=== PATIENT | male | born 1950 | race Hispanic/Latino ===

== ENCOUNTER → 2020-04-08 | Outpatient (CLI) | payer OTHER ==
[~2020-04-08] MED LIST: GADODIAMIDE 10 MMOL/20 ML VIAL IV ONE
== END | disposition home or self-care (01) ==
LOC: RAH 12:43
PROVIDERS: ATTEND Family Medicine
DX: M25.462 Effusion, left knee (principal)
CPT/HCPCS: 73723; A9579

== ENCOUNTER 2020-10-28 07:35 | Observation (INO) | payer OTHER ==
[2020-10-22 12:51] LABS: BASOPHILS % (AUTO) 0.4 % (0.0-5.0); EOSINOPHILS % (AUTO) 2.6 % (0.0-8.0); LYMPHOCYTES % (AUTO) 32.4 % (21.0-51.0); MEAN CORPUSCULAR HEMOGLOBIN 31.6 pg (27.0-33.0); MEAN CORPUSCULAR HGB CONC 33.3 g/dL (32.0-36.0); MEAN CORPUSCULAR VOLUME 94.7 fL (79-99); NEUTROPHILS % (AUTO) 54.3 % (40.0-77.0); PLATELET COUNT (AUTO) 165 K/uL (130-400); RED CELL DISTRIBUTION WIDTH 12.4 % (11.0-15.5); WHITE BLOOD COUNT (AUTO) 6.9 K/uL (4.8-10.8)
[2020-10-22 12:57] LABS: CREATININE 0.9 mg/dL (0.5-1.5); POTASSIUM 4.2 mmol/L (3.5-5.1)
[2020-10-22 13:08] LABS: PARTIAL THROMBOPLASTIN TIME 27.5 SEC (26.3-35.5)
[2020-10-22 13:31] LABS: PROTHROMBIN TIME 10.9 SEC (9.6-11.6)
[2020-10-27 10:25] VITALS: BP 124/85
[~2020-10-28] VITALS: Ht 180.3 cm; Wt 114.8 kg
[2020-10-28] VITALS (21 sets, daily range): BP systolic 105–138; BP diastolic 53–65
[2020-10-28] MEDS: CEFAZOLIN SODIUM 1 GM VIAL IVP SCH ×3 (06:00→20:12)
[~2020-10-28 07:35] MED LIST changes: +GABA300C PO; -GADODIAMIDE 10 MMOL/20 ML VIAL IV ONE; +IBUP-2070 PO
[2020-10-28] MEDS: LACTATED RINGERS 1000ML 1,000 ML IV SCH ×6 (08:53→15:27)
[2020-10-28] MEDS ORDERED: PROPOFOL 10 MG/ML 20ML VIAL IV ONE (11:08)
[2020-10-28] MEDS ORDERED: DEXAMETHASONE SOD PHOSPHATE 10MG/ML 1ML VIAL ONE (11:08)
[2020-10-28] MEDS ORDERED: LIDOCAINE PF 100MG/5ML (2%) SYRINGE 5ML ONE (11:08)
[2020-10-28] MEDS ORDERED: FENTANYL CITRATE PF 50 MCG/1 ML 2ML VIAL ONE (11:08)
[2020-10-28] MEDS ORDERED: SUCCINYLCHOLINE CHLORIDE 20 MG/ML 10 ML VIAL ONE (11:08)
[2020-10-28] MEDS ORDERED: ONDANSETRON HCL 4 MG/2 ML VIAL ONE (11:08)
[2020-10-28] MEDS ORDERED: GLYCOPYRROLATE 1 MG/5 ML SYRINGE ONE (11:08)
[2020-10-28] MEDS ORDERED: NEOSTIGMINE 5MG/5ML SYR IV ONE (11:08)
[2020-10-28] MEDS ORDERED: ROCURONIUM 10MG/1ML SYR 10 MG/ML ML ONE (11:09)
[2020-10-28] MEDS ORDERED: ATROPINE SULFATE 0.1 MG/ML 10 ML SYG IVP ONE (11:19)
[2020-10-28] MEDS: TRANEXAMIC ACID 1000MG/10ML ONE ×2 (11:30→12:30)
[2020-10-28] MEDS: TRAMADOL HCL 50 MG TABLET PO SCH ×3 (11:30→23:30)
[2020-10-28] MEDS ORDERED: IBUPROFEN 600 MG TABLET PO PRN (11:30)
[2020-10-28] MEDS: ACETAMINOPHEN 500 MG TABLET PO SCH ×2 (11:30→20:13)
[2020-10-28] MEDS ORDERED: MORPHINE 4 MG SYG (4MG/1ML) IVP PRN (11:30)
[2020-10-28] MEDS ORDERED: ONDANSETRON HCL 4 MG/2 ML VIAL IVP PRN (11:30)
[2020-10-28] MEDS ORDERED: KETOROLAC 15MG/ML VIAL (15MG/ML) IV PRN (11:30)
[2020-10-28] MEDS ORDERED: [UNRECOGNIZED DRUG - OTHER] TP SCH ×5 (11:45)
[2020-10-28] MEDS ORDERED: ROPIVACAINE TP SCH ×5 (11:45)
[2020-10-28] MEDS ORDERED: KETOROLAC TROMETHAMINE TP SCH ×5 (11:45)
[2020-10-28] MEDS ORDERED: MEPERIDINE-PF 25 MG/ML SYG ONE ×2 (13:53→14:14)
[2020-10-28] MEDS: SODIUM CHLORIDE 0.9% 1000ML 1,000 ML IV SCH ×2 (14:53→21:30)
[2020-10-28] MEDS ORDERED: CEFAZOLIN SODIUM 1 GM VIAL IVP SCH (16:30)
[2020-10-28] MEDS: FAMOTIDINE 20MG TAB 20 MG TAB PO SCH (20:13)
[2020-10-28] MEDS: GABAPENTIN 300 MG CAPSULE PO SCH (20:13)
[2020-10-28] MEDS: ASPIRIN 81 MG EC TAB PO SCH (20:13)
[2020-10-28] MEDS: OXYCODONE HCL 5 MG TAB PO PRN (22:44)
[2020-10-29] MEDS: CEFAZOLIN SODIUM 1 GM VIAL IVP SCH (03:23)
[2020-10-29] MEDS: ACETAMINOPHEN 500 MG TABLET PO SCH ×3 (03:24→18:33)
[2020-10-29 03:52] VITALS: BP 117/57
[2020-10-29 04:25] LABS: HEMATOCRIT 33.8 % (42-54); MEAN CORPUSCULAR HEMOGLOBIN 31.1 pg (27.0-33.0); MEAN CORPUSCULAR HGB CONC 32.5 g/dL (32.0-36.0); MEAN CORPUSCULAR VOLUME 95.5 fL (79-99); RED BLOOD CELL COUNT(AUTO) 3.54 MIL/uL (4.50-6.20); RED CELL DISTRIBUTION WIDTH 12.3 % (11.0-15.5)
[2020-10-29 04:38] LABS: POTASSIUM 4.1 mmol/L (3.5-5.1)
[2020-10-29] MEDS: TRAMADOL HCL 50 MG TABLET PO SCH ×4 (05:38→23:44)
[2020-10-29] MEDS: SODIUM CHLORIDE 0.9% 1000ML 1,000 ML IV SCH (07:30)
[2020-10-29] MEDS: POLYETHYLENE GLYCOL 3350 17 GM POWD.PACK PO SCH (07:39)
[2020-10-29] MEDS: ASPIRIN 81 MG EC TAB PO SCH ×2 (07:39→19:29)
[2020-10-29] MEDS: FAMOTIDINE 20MG TAB 20 MG TAB PO SCH ×2 (07:39→19:29)
[2020-10-29] MEDS: OXYCODONE HCL 5 MG TAB PO PRN (07:44)
[2020-10-29 08:07] VITALS: BP 119/54
[2020-10-29 11:57] VITALS: BP 111/64
[2020-10-29 16:00] VITALS: BP 121/62
[2020-10-29] MEDS: GABAPENTIN 300 MG CAPSULE PO SCH (19:29)
[2020-10-29 20:00] VITALS: BP 122/68
[2020-10-30] VITALS: BP 134/64
[2020-10-30] MEDS: ACETAMINOPHEN 500 MG TABLET PO SCH ×2 (02:34→12:05)
[2020-10-30] MEDS: TRAMADOL HCL 50 MG TABLET PO SCH ×2 (04:55→12:04)
[2020-10-30 08:00] VITALS: BP 120/65
[2020-10-30] MEDS: POLYETHYLENE GLYCOL 3350 17 GM POWD.PACK PO SCH (08:13)
[2020-10-30] MEDS: ASPIRIN 81 MG EC TAB PO SCH (08:13)
[2020-10-30] MEDS: FAMOTIDINE 20MG TAB 20 MG TAB PO SCH (08:13)
[2020-10-30] MEDS: OXYCODONE HCL 5 MG TAB PO PRN (08:16)
[2020-10-30 12:00] VITALS: BP 127/58
[2020-10-31] MEDS ORDERED: BISACODYL 10 MG SUPP.RECT RC PRN (11:30)
== END 2020-10-30 13:55 | disposition home health service (06) ==
LOC: DAH 07:35 → DAHIP 07:36 → DAH 07:36 → 4AH 14:51
PROVIDERS: ADMIT Orthopaedic Surgery; ATTEND Orthopaedic Surgery
DX: M17.12 Unilateral primary osteoarthritis, left knee (principal); Z20.822 Contact with and (suspected) exposure to COVID-19; E66.9 Obesity, unspecified; Z68.35 Body mass index [BMI] 35.0-35.9, adult
CPT/HCPCS: 27447; 36415 ×2; 73562; 80048 ×2; 85025; 85027; 85610; 85730; 87635; 87641; 93005; 96361 ×2; 96374; 96375; 96376; 97039 ×4; 97116 ×4; 97161; 97530 ×4; A4649 ×5; A4930 ×2; A9272; C1776; C9803; G0378 ×48; G8978; G8979; G8980; G8982; G8983; J0171; J0330; J0461; J0690 ×3; J0735; J1100; J1885 ×2; J2001; J2175 ×2; J2405; J2704; J2710; J2795; J3010; J3490 ×2; J7030; J7120

== ENCOUNTER 2021-01-06 06:28 | Day surgery (SDC) | payer OTHER ==
[2020-12-31 13:23] LABS: BASOPHILS % (AUTO) 0.4 % (0.0-5.0); EOSINOPHILS % (AUTO) 2.1 % (0.0-8.0); LYMPHOCYTES % (AUTO) 41.3 % (21.0-51.0); MEAN CORPUSCULAR HEMOGLOBIN 28.4 pg (27.0-33.0); MEAN CORPUSCULAR HGB CONC 31.5 g/dL (32.0-36.0); MEAN CORPUSCULAR VOLUME 90.1 fL (79-99); NEUTROPHILS % (AUTO) 46.9 % (40.0-77.0); PLATELET COUNT (AUTO) 173 K/uL (130-400); RED BLOOD CELL COUNT(AUTO) 4.33 MIL/uL (4.50-6.20); RED CELL DISTRIBUTION WIDTH 13.9 % (11.0-15.5); WHITE BLOOD COUNT (AUTO) 7.2 K/uL (4.8-10.8)
[2020-12-31 13:36] LABS: POTASSIUM 4.4 mmol/L (3.5-5.1)
[2021-01-05 11:48] VITALS: BP 146/76
[2021-01-06] VITALS (15 sets, daily range): BP systolic 101–135; BP diastolic 54–74
[~2021-01-06] VITALS: Ht 172.7 cm; Wt 106.0 kg
[~2021-01-06 06:28] MED LIST changes: -GABA300C PO; -IBUP-2070 PO; +TRAM50TA4 PO
[2021-01-06] MEDS ORDERED: CEFAZOLIN SODIUM 1 GM VIAL ONE (06:45)
[2021-01-06] MEDS: LACTATED RINGERS 1000ML 1,000 ML IV SCH ×2 (07:14→08:08)
[2021-01-06] MEDS ORDERED: FENTANYL CITRATE PF 50 MCG/1 ML 2ML VIAL ONE (07:28)
[2021-01-06] MEDS ORDERED: ONDANSETRON 4MG INJ ONE (07:28)
[2021-01-06] MEDS ORDERED: MIDAZOLAM HCL 1 MG/ML 2ML VIAL ONE (07:28)
[2021-01-06] MEDS ORDERED: LIDOCAINE PF 100MG/5ML (2%) SYRINGE 5ML ONE ×2 (07:28→07:29)
[2021-01-06] MEDS ORDERED: DEXAMETHASONE SOD PHOSPHATE 10MG/ML 1ML VIAL ONE (07:28)
[2021-01-06] MEDS ORDERED: ROCURONIUM 10MG/1ML SYR 10 MG/ML ML ONE (07:28)
[2021-01-06] MEDS ORDERED: NEOSTIGMINE 5MG/5ML SYR IV ONE (07:28)
[2021-01-06] MEDS ORDERED: SUCCINYLCHOLINE CHLORIDE 20 MG/ML 10 ML VIAL ONE (07:28)
[2021-01-06] MEDS ORDERED: GLYCOPYRROLATE 1 MG/5 ML SYRINGE ONE (07:28)
[2021-01-06] MEDS ORDERED: PROPOFOL 10 MG/ML 20ML VIAL IV ONE (07:28)
[2021-01-06] MEDS ORDERED: BUPIVACAINE/PF 0.25% 30ML VIAL IJ ONE (07:29)
[2021-01-06] MEDS ORDERED: BUPIVACAINE/PF 0.5% 10ML VIAL ONE (07:29)
[2021-01-06] MEDS ORDERED: ACET1TAB25 PO (07:32)
[2021-01-06] MEDS ORDERED: GABA300C PO (07:32)
[2021-01-06] MEDS ORDERED: CELE100C97 PO (07:32)
[2021-01-06] MEDS ORDERED: CEFAZOLIN SODIUM 1 GM VIAL IVP ONE (08:00)
== END 2021-01-06 09:37 | disposition home or self-care (01) ==
LOC: DAH 06:28
PROVIDERS: ATTEND Orthopaedic Surgery
DX: M24.562 Contracture, left knee (principal); M17.12 Unilateral primary osteoarthritis, left knee; Z20.822 Contact with and (suspected) exposure to COVID-19; E66.01 Morbid (severe) obesity due to excess calories; I10 Essential (primary) hypertension; E11.9 Type 2 diabetes mellitus without complications; Z96.652 Presence of left artificial knee joint; Z68.37 Body mass index [BMI] 37.0-37.9, adult
CPT/HCPCS: 27570; 36415; 80048; 85025; 87426; A4215; A4221; A4222; A4223; A4248; A4606; A4663; J0330; J0690; J1030; J1100; J2001 ×2; J2250; J2405; J2704; J2710; J3010; J3490 ×2; J7120